=== PATIENT | female | born 1995 ===

== ENCOUNTER → 2021-10-09 | Outpatient (CLI) | payer OTHER | END | disposition home or self-care (01) | LOC: LAB SHORT 13:13 → LAB 13:13 | DX: R30.9 Painful micturition, unspecified (principal) | CPT/HCPCS: 87077; 87086; 87186 ==

== ENCOUNTER → 2021-10-18 | Outpatient (CLI) | payer OTHER ==
[2021-10-21 05:08] LABS: CHLAMYDIA TRACHOMATIS, NAA Negative (Negative)
== END ==
LOC: LAB 15:30 → LAB SHORT 15:30
PROVIDERS: Registered Nurse Community Health
DX: Z11.52 Encounter for screening for COVID-19 (principal)
CPT/HCPCS: 87491; 87591